=== PATIENT | male | born 1965 ===

== ENCOUNTER 2017-12-18 10:33 | Emergency (ER) | payer OTHER ==
[~2017-12-18] VITALS: Ht 175.3 cm; Wt 72.6 kg
[2017-12-18] MEDS ORDERED: WELLBUTRIN XL150 M1 (11:02)
== END 2017-12-18 13:30 | disposition home or self-care (01) ==
LOC: ER 10:33
DX: B34.9 Viral infection, unspecified (principal)

== ENCOUNTER → 2018-02-05 | Emergency (ER) | payer OTHER ==
[~2018-02-05] VITALS: Ht 175.3 cm; Wt 71.7 kg
[~2018-02-05] MED LIST: WELLBUTRIN XL150 M1
== END | disposition home or self-care (01) ==
LOC: ER 13:13
DX: S00.03XA Contusion of scalp, initial encounter (principal); W01.198A Fall on same level from slipping, tripping and stumbling with subsequent striking against other object, initial encounter; Y93.E1 Activity, personal bathing and showering; Y92.012 Bathroom of single-family (private) house as the place of occurrence of the external cause; Y99.8 Other external cause status